=== PATIENT | female | born 1995 | race Caucasian/White ===

== ENCOUNTER 2019-04-20 18:06 | Emergency (ER) | payer MEDICAID, OTHER ==
[~2019-04-20] VITALS: Ht 162.6 cm; Wt 75.0 kg
[2019-04-20 18:10] VITALS: BP 112/63
[2019-04-20] MEDS ORDERED: CEPH500C5 PO (20:49)
[2019-04-20] MEDS ORDERED: SULF1TAB49 PO (20:49)
== END 2019-04-20 21:21 | disposition home or self-care (01) ==
LOC: ER 18:07
DX: L02.31 Cutaneous abscess of buttock (principal); Z79.2 Long term (current) use of antibiotics
CPT/HCPCS: 99283

== ENCOUNTER 2020-12-25 14:19 | Emergency (ER) | payer MEDICAID ==
[~2020-12-25] VITALS: Ht 162.6 cm; Wt 72.7 kg
[2020-12-25 14:49] VITALS: BP 113/77
[2020-12-25 15:23] LABS: URINE HCG NEGATIVE (NEG)
[2020-12-25 15:48] LABS: CLARITY,URINE CLOUDY (Clear); GLUCOSE, URINE NEGATIVE (Neg); KETONES,URINE TRACE mg/dl (Neg); LEUKOCYTE ESTERASE ,URINE SMALL (Neg); NITRITES, URINE NEGATIVE (Neg); OCCULT BLOOD,URINE TRACE-INTACT (Neg); PH,URINE 5.5 (4.8-8.0); PROTEIN,URINE TRACE mg/dl (Neg); UROBILINOGEN,URINE 0.2 E.U/dL (0.2-1.0)
[2020-12-25 15:49] LABS: COLOR,URINE DARK YELLOW (Yellow); UA COLLECTION TYPE CLN CATCH MIDSTREAM
[2020-12-25 15:55] LABS: BASOPHILS % (AUTO) 0.2 % (0-1); EOSINOPHILS # (AUTO) 0.1 X10'3 (0-0.9); EOSINOPHILS % (AUTO) 0.5 % (0-6); HEMATOCRIT 44.4 % (35.0-45.0); HEMOGLOBIN 15.2 g/dl (12.0-16.0); LYMPHOCYTES # (AUTO) 2.7 X10'3 (1.1-4.8); LYMPHOCYTES % (AUTO) 17.5 % (21-51); MEAN CORPUSCULAR HEMOGLOBIN 29.7 PG (27.0-31.0); MEAN CORPUSCULAR HGB CONC 34.2 g/dL (33.0-36.5); MEAN CORPUSCULAR VOLUME 86.8 FL (78-98); MEAN PLATELET VOLUME 9.2 FL (7.4-10.4); MONOCYTES # (AUTO) 0.7 X10'3 (0-0.9); MONOCYTES % (AUTO) 4.6 % (2-12); NEUTROPHILS # (AUTO) 11.7 X10'3 (1.8-7.7); NEUTROPHILS % (AUTO) 77.2 % (42-75); PLATELET COUNT 243 X10'3 (140-440); RED BLOOD COUNT 5.12 X10'6 (4.20-5.60); RED CELL DISTRIBUTION WIDTH 12.6 % (11.5-14.5); WHITE BLOOD COUNT 15.2 X10'3 (4.5-11.0)
[2020-12-25 16:05] LABS: WBC,URINE 20-30 /HPF (0-4)
[2020-12-25 16:06] LABS: BACTERIA,URINE 2+ /HPF (Neg); MUCUS STRANDS MANY /LPF (Neg); RBC,URINE 0-2 /HPF (0-2); SQUAMOUS EPITHELIAL CELL,UR MANY /LPF (FEW); YEAST FEW /HPF (NEGATIVE)
[2020-12-25 16:09] LABS: ALANINE AMINOTRANSFERASE 24 U/L (12-78); ALBUMIN 4.4 G/DL (3.4-5.0); ALBUMIN/GLOBULIN RATIO 1.3 (1.1-1.5); ALKALINE PHOSPHATASE 71 IU/L (46-116); ANION GAP 13 (8-16); ASPARTATE AMINO TRANSFERASE 19 U/L (10-37); BILIRUBIN,TOTAL 0.5 MG/DL (0.1-1.0); BLOOD UREA NITROGEN 15 MG/DL (7-18); BUN/CREATININE RATIO 18.8 (6.6-38.0); CALCIUM 9.2 MG/DL (8.5-10.1); CHLORIDE 105 MMOL/L (99-107); GLUCOSE 130 MG/DL (70-104); LIPASE 63 U/L (73-393); POTASSIUM 3.7 MMOL/L (3.5-5.1); SODIUM 143 MMOL/L (135-145); TOTAL CARBON DIOXIDE 25.5 MMOL/L (24-32); TOTAL PROTEIN 7.8 G/DL (6.4-8.2); eGFR 88 ML/MIN
[2020-12-25] MEDS ORDERED: ondansetron/PF 4mg/2ml inj IV ONE (16:55)
[2020-12-25] MEDS ORDERED: normal saline 1000ml 1,000 ML IV ONE (16:55)
[2020-12-25] MEDS ORDERED: CEPH250T PO (17:08)
[2020-12-25] MEDS ORDERED: ONDA4TAB6 PO (17:08)
== END 2020-12-25 18:10 | disposition home or self-care (01) ==
LOC: ER 14:20
DX: N39.0 Urinary tract infection, site not specified (principal); R11.2 Nausea with vomiting, unspecified; Z79.899 Other long term (current) drug therapy
CPT/HCPCS: 36415; 80053; 81001; 81025; 83690; 85025; 96361; 96374; 99283; J2405; J7030